=== PATIENT | female | born 1990 ===

== ENCOUNTER 2025-01-07 09:42 | Outpatient (CLI) | payer MEDICAID ==
[2025-01-07 10:02] LABS: Hematocrit 41.6 % (36.0-46.0); Hemoglobin 14.6 g/dL (12.2-16.2); Mean Corpuscular Hemoglobin 28.9 pg (28.0-32.0); Mean Corpuscular Volume 82.5 fL (80.0-100.0); Nucleated Red Blood Cells % 0.2 %
[2025-01-07 10:30] LABS: Alanine Aminotransferase 20 U/L (7-40); Albumin 4.4 g/dL (3.2-4.8); Alkaline Phosphatase 96 U/L (46-116); Anion Gap 8 (5-15); BUN/Creatinine Ratio 11.4 (10.0-20.0); Calcium 9.5 mg/dL (8.7-10.4); Carbon Dioxide 29 mmol/L (20-31); Chloride 104 mmol/L (98-107); Cholesterol 154 mg/dL (< 200); Glucose 95 mg/dL (74-106); Potassium 4.2 mmol/L (3.5-5.1); Sodium 141 mmol/L (136-145); Total Protein 7.7 g/dL (5.7-8.2)
[2025-01-07 10:31] LABS: Bilirubin, Total 0.6 mg/dL (0.2-1.0)
[2025-01-07 10:33] LABS: Blood Urea Nitrogen 8 mg/dL (9-23); HDL Cholesterol 28 mg/dL (40-59); Triglycerides 223 mg/dL (< 150)
== END 2025-01-07 17:00 | disposition home or self-care (01) ==
LOC: LAB 09:42
PROVIDERS: ATTEND Licensed Practical Nurse
DX: I10 Essential (primary) hypertension (principal); E78.5 Hyperlipidemia, unspecified; R57.9 Shock, unspecified
CPT/HCPCS: 36415; 80053; 80061; 82043; 85025